=== PATIENT | male | born 2000 | race African-American/Black ===

== ENCOUNTER 2023-01-23 06:06 | Emergency (ER) | payer SELFPAY ==
[2023-01-23] MEDS ORDERED: Tetracaine 0.5% PF 4 ML BOT ONE (06:44)
== END 2023-01-23 07:22 | disposition home or self-care (01) ==
LOC: NAV ERS 06:06
DX: H57.12 Ocular pain, left eye (principal); F17.200 Nicotine dependence, unspecified, uncomplicated
CPT/HCPCS: 99283

== ENCOUNTER 2023-02-16 15:42 | Emergency (ER) | payer SELFPAY ==
[2023-02-16] MEDS ORDERED: Ibuprofen 200 MG TAB ONE (15:53)
== END 2023-02-16 16:50 | disposition home or self-care (01) ==
LOC: NAV ERS 15:42
DX: S29.011A Strain of muscle and tendon of front wall of thorax, initial encounter (principal); B34.9 Viral infection, unspecified; J45.909 Unspecified asthma, uncomplicated; X58.XXXA Exposure to other specified factors, initial encounter
CPT/HCPCS: 87081; 87430; 87804; 99284